=== PATIENT | female | born 1985 | race Caucasian/White ===

== ENCOUNTER 2022-06-29 18:17 | Emergency (ER) | payer OTHER ==
[2022-06-29] MEDS ORDERED: Ventolin HFA Inhaler 60 PUFF INHALER ONE (19:40)
[2022-06-29] MEDS ORDERED: Acetaminophen 500 MG TAB ONE (21:01)
== END 2022-06-29 21:41 | disposition home or self-care (01) ==
LOC: CSHERS 18:17
DX: U07.1 COVID-19 (principal); J06.9 Acute upper respiratory infection, unspecified; F17.210 Nicotine dependence, cigarettes, uncomplicated
CPT/HCPCS: 71045; U0003; U0005

== ENCOUNTER 2022-07-15 23:51 | Emergency (ER) | payer OTHER ==
[2022-07-16 00:57] LABS: #Basophils 0.1 10x3/uL (0.0-0.2); #Eosinphils 0.1 10x3/uL (0.0-0.5); #Monocytes 0.7 10x3/uL (0.0-1.1); #Neutrophils 5.1 10x3/uL (1.5-8.4); %Basophils 0.6 % (0.0-2.0); %Eosinophils 1.7 % (0.0-6.0); %Lymphocytes 26.3 % (18.0-47.0); %Monocytes 8.5 % (0.0-10.0); %Neutrophils 62.7 % (40.0-75.0); Hemoglobin 12.8 g/dL (12.0-15.5); Mean Corpuscular HGB CONC 34.2 g/dL (32.0-36.0); Mean Corpuscular Hemoglobin 30.7 pg (27.0-33.0); Mean Corpuscular Volume 89.7 fl (81.6-98.3); Platelet Count 292 10x3/uL (150-450); RBC Distribution Width 12.1 % (11.5-14.5); Red Blood Cell (RBC) Count 4.17 10x6/uL (3.90-5.03); White Blood Cell (WBC) Count 8.1 10x3/uL (3.5-10.5)
[2022-07-16 01:07] LABS: BHCG - Serum Negative (NEGATIVE); Pregs Control Background? CLEAR/WHITE (CLR/WHITE); Pregs Control Bar Appear? YES (CONTROL BAR)
[2022-07-16 01:11] LABS: ALT (SGPT) 24 U/L (8-55); AST (SGOT) 13 U/L (5-34); Albumin 4.1 g/dL (3.5-5.0); Alkaline Phosphatase 71 U/L (40-110); Anion Gap 10 mmol/L (10-20); BUN (Urea Nitrogen) 11 mg/dL (7.0-18.7); Bilirubin, Total 0.2 mg/dL (0.2-1.2); Calc. Creatinine Clearance 0 mL/min (70-130); Calcium 9.2 mg/dL (7.8-10.44); Carbon Dioxide 25 mmol/L (22-29); Chloride 109 mmol/L (98-107); Estimated GFR 103; Globulin 2.8 g/dL (2.4-3.5); Glucose 73 mg/dL (70-105); Potassium 4.1 mmol/L (3.5-5.1); Protein, Total 6.9 g/dL (6.0-8.3); Sodium 140 mmol/L (136-145)
== END 2022-07-16 01:39 | disposition home or self-care (01) ==
LOC: CSHERS 23:51
DX: R10.9 Unspecified abdominal pain (principal); F17.210 Nicotine dependence, cigarettes, uncomplicated
CPT/HCPCS: 36415; 80053; 84703; 85025; 99284

== ENCOUNTER 2023-10-21 15:16 | Emergency (ER) | payer OTHER ==
[2023-10-21] MEDS ORDERED: Ondansetron PF 4 MG/2 ML Vial ONE (17:09)
[2023-10-21] MEDS ORDERED: Dexamethasone 10 MG/ML VIAL ONE (17:51)
== END 2023-10-21 18:56 | disposition home or self-care (01) ==
LOC: CSHERS 15:16
DX: S06.0X0A Concussion without loss of consciousness, initial encounter (principal); S16.1XXA Strain of muscle, fascia and tendon at neck level, initial encounter; E86.0 Dehydration; F17.210 Nicotine dependence, cigarettes, uncomplicated; W20.8XXA Other cause of strike by thrown, projected or falling object, initial encounter
CPT/HCPCS: 70450; 72125; 96361; 96374; 96375; J1100; J2405